=== PATIENT | female | born 1985 | race Two or more races ===

== ENCOUNTER 2022-11-06 17:00 | Inpatient (IN) | payer BC ==
[2022-11-06 17:54] VITALS: BMI 30.5
[2022-11-06] MEDS ORDERED: hydrALAZINE 20 MG/ML VIAL SLOW IVP PRN (17:55)
[2022-11-06] MEDS ORDERED: Ondansetron PF 4 MG/2 ML Vial IVP PRN ×2 (18:27→19:29)
[2022-11-06] MEDS ORDERED: Promethazine HCl 25 MG/ML VIAL IM PRN ×2 (18:27→19:29)
[2022-11-06] MEDS ORDERED: Ibuprofen 800 MG TAB PO PRN (18:27)
[2022-11-06] MEDS ORDERED: Methylergonovine 0.2 MG/ML VIAL IM PRN (18:27)
[2022-11-06] MEDS ORDERED: fentaNYL 50 mcg/mL 1 mL Vial SLOW IVP PRN (18:27)
[2022-11-06] MEDS ORDERED: Docusate 100 MG CAP PO PRN (18:27)
[2022-11-06] MEDS ORDERED: Acetaminophen 500 MG TAB PO PRN (18:27)
[2022-11-06] MEDS ORDERED: Tranexamic Acid 1,000 MG/10 ML VIAL IVP PRN (18:27)
[2022-11-06] MEDS ORDERED: Lidocaine 1% (PF) 30 ML VIAL SC PRN (18:27)
[2022-11-06] MEDS ORDERED: Carboprost 250 MCG/ML AMP IM PRN (18:27)
[2022-11-06] MEDS ORDERED: Diphenoxylate HCl/Atropine Tablet PO PRN (18:27)
[2022-11-06] MEDS ORDERED: Misoprostol 200 MCG TAB PR PRN (18:27)
[2022-11-06] MEDS ORDERED: NS w/ Oxytocin 30 units 500 ML IV SCH ×2 (18:30)
[2022-11-06] MEDS ORDERED: Penicillin G Potassium 5 MILL.UNITS in Sodium Chloride 0.9% 100 ML IVPB SCH (18:30)
[2022-11-06 19:12] LABS: Fetal Membranes Rupture No Membranes Rupture (No Rupture)
[2022-11-06 19:13] LABS: Hematocrit 33.6 % (34.9-44.5); Hemoglobin 11.9 g/dL (12.0-15.5); Mean Corpuscular HGB CONC 35.4 g/dL (32.0-36.0); Mean Corpuscular Hemoglobin 31.3 pg (27.0-33.0); Mean Corpuscular Volume 88.4 fl (81.6-98.3); Mean Platelet Volume 11.9 fl (7.4-10.4); Platelet Count 98 10x3/uL (150-450); RBC Distribution Width 13.3 % (11.5-14.5); White Blood Cell (WBC) Count 8.4 10x3/uL (3.5-10.5)
[2022-11-06] MEDS ORDERED: fentaNYL/Ropivacaine Epidural 100 ML ONE (19:16)
[2022-11-06] MEDS ORDERED: Lactated Ringer's 500 ML IV PRN (19:29)
[2022-11-06] MEDS ORDERED: Naloxone HCl 0.4 mg/ml Vial IVP PRN ×2 (19:29)
[2022-11-06] MEDS ORDERED: ePHEDrine Sulfate 50 MG/10 ML VIAL SLOW IVP PRN (19:29)
[2022-11-06] MEDS ORDERED: Moisturizing Cream (Eucerin) 113 GM JAR TOP PRN (19:29)
[2022-11-06] MEDS ORDERED: Acetaminophen 325 MG TAB PO PRN (19:29)
[2022-11-06] MEDS ORDERED: diphenhydrAMINE 50 MG/ML VIAL IVP PRN (19:29)
[2022-11-06] MEDS ORDERED: Communication Order-Pharmacy FS SCH (19:30)
[2022-11-06] MEDS ORDERED: fentaNYL 2 mcg/Ropivacaine 0.2% Epidural 100 ML CADD EPIDURAL SCH (19:30)
[2022-11-06 19:45] LABS: Syphilis Antibody Nonreactive (Nonreactive); Syphilis Antibody Index 0.03 S/CO (<1.00 Non-Reactive)
[2022-11-06] MEDS ORDERED: Bupivacaine 0.25% HCL 30 ML VIAL ONE (19:45)
[2022-11-06 20:02] LABS: Hep B Surf Ag - L&D Non-Reactive S/CO (NonReactive)
[2022-11-06] MEDS: Penicillin G 2.5 MILL.units 2.5 MILL.UNITS in Premix Bag 1 BAG IVPB SCH (23:01)
[2022-11-07] MEDS: Penicillin G 2.5 MILL.units 2.5 MILL.UNITS in Premix Bag 1 BAG IVPB SCH ×3 (03:05→20:49)
[2022-11-07] MEDS ORDERED: fentaNYL 50 mcg/mL 1 mL Vial ONE (04:28)
[2022-11-07] MEDS ORDERED: Lanolin Ointment 7 GM TUBE TOP PRN (09:35)
[2022-11-07] MEDS ORDERED: traMADol HCl 50 MG TAB PO PRN ×2 (09:35)
[2022-11-07] MEDS ORDERED: Boostrix 0.5 ML (Tdap) VIAL (>/=7 yrs of age) IM ONE (09:35)
[2022-11-07] MEDS ORDERED: Bisacodyl 10 MG SUPP PR PRN (09:35)
[2022-11-07] MEDS ORDERED: Milk Of Magnesia 30 ML UDCUP PO PRN (09:35)
[2022-11-07] MEDS ORDERED: Preparation H Ointment 28 GM TUBE PR PRN (09:35)
[2022-11-07] MEDS ORDERED: hydrALAZINE 20 MG/ML VIAL SLOW IVP PRN (09:35)
[2022-11-07] MEDS ORDERED: diphenhydrAMINE 25 MG CAP PO PRN (09:35)
[2022-11-07] MEDS ORDERED: Benzocaine-Menthol 82.5 ML CAN TOP PRN (09:35)
[2022-11-07] MEDS: Ferrous Sulfate 325 MG TAB PO SCH (18:18)
[2022-11-07] MEDS ORDERED: Ibuprofen 800 MG TAB PO SCH (19:30)
[2022-11-07] MEDS: Ibuprofen 800 MG TAB PO SCH ×2 (19:37→21:00)
[2022-11-07] MEDS: Docusate 100 MG CAP PO SCH (20:59)
[2022-11-08 04:40] LABS: Hematocrit 24.3 % (34.9-44.5); Hemoglobin 8.7 g/dL (12.0-15.5); Mean Corpuscular HGB CONC 35.8 g/dL (32.0-36.0); Mean Corpuscular Hemoglobin 31.9 pg (27.0-33.0); Mean Platelet Volume 11.7 fl (7.4-10.4); Platelet Count 71 10x3/uL (150-450); RBC Distribution Width 13.3 % (11.5-14.5); Red Blood Cell (RBC) Count 2.73 10x6/uL (3.90-5.03); White Blood Cell (WBC) Count 11.5 10x3/uL (3.5-10.5)
[2022-11-08] MEDS: Ibuprofen 800 MG TAB PO SCH ×3 (05:52→21:36)
[2022-11-08] MEDS: Ferrous Sulfate 325 MG TAB PO SCH ×2 (09:33→16:57)
[2022-11-08] MEDS: Prenatal Vitamin 1 TAB PO SCH (09:34)
[2022-11-08] MEDS: Docusate 100 MG CAP PO SCH ×2 (09:34→21:36)
[2022-11-09] MEDS: Ibuprofen 800 MG TAB PO SCH (06:02)
[2022-11-09 07:57] VITALS: BP 131/69; TEMP 98.2
[2022-11-09] MEDS: Ferrous Sulfate 325 MG TAB PO SCH (08:56)
[2022-11-09] MEDS: Docusate 100 MG CAP PO SCH (08:57)
[2022-11-09] MEDS: Prenatal Vitamin 1 TAB PO SCH (08:57)
== END 2022-11-09 12:40 | disposition home or self-care (01) | DRG 807 ==
LOC: CSHLD/OP 17:00 → CSHLD 18:41 → CSHPP 11-07 13:00
PROVIDERS: ADMIT Obstetrics & Gynecology; ATTEND Obstetrics & Gynecology
PROC: 10D07Z3 Extraction of Products of Conception, Low Forceps, Via Natural or Artificial Opening (ICD-10-PCS; principal; 2022-11-07)
PROC: 10E0XZZ Delivery of Products of Conception, External Approach (ICD-10-PCS; 2022-11-07)
PROC: 0KQM0ZZ Repair Perineum Muscle, Open Approach (ICD-10-PCS; 2022-11-07)
PROC: 3E03329 Introduction of Other Anti-infective into Peripheral Vein, Percutaneous Approach (ICD-10-PCS; 2022-11-07)
PROC: 10907ZC Drainage of Amniotic Fluid, Therapeutic from Products of Conception, Via Natural or Artificial Opening (ICD-10-PCS; 2022-11-07)
PROC: 3E033VJ Introduction of Other Hormone into Peripheral Vein, Percutaneous Approach (ICD-10-PCS; 2022-11-07)
PROC: 3E033XZ Introduction of Vasopressor into Peripheral Vein, Percutaneous Approach (ICD-10-PCS; 2022-11-07)
DX: O30.043 Twin pregnancy, dichorionic/diamniotic, third trimester (principal); Z37.2 Twins, both liveborn; Z3A.37 37 weeks gestation of pregnancy; O99.824 Streptococcus B carrier state complicating childbirth; O70.1 Second degree perineal laceration during delivery
CPT/HCPCS: 36415; 51702; 84112; 85027; 86780; 86850; 86900; 86901; 87340; 87480; 87510; 87660; 99285; J2540; J2590; J3490; S0020